=== PATIENT | female | born 1965 | race Caucasian/White ===

== ENCOUNTER 2018-11-26 15:05 | Emergency (ER) | payer MEDICAID, OTHER ==
[2018-11-26] MEDS: KETOROLAC 60 MG INJ IM (21:22)
== END 2018-11-26 23:08 | disposition home or self-care (01) ==
LOC: FTE 15:05
DX: S89.91XA Unspecified injury of right lower leg, initial encounter (principal); W01.0XXA Fall on same level from slipping, tripping and stumbling without subsequent striking against object, initial encounter; Y92.002 Bathroom of unspecified non-institutional (private) residence as the place of occurrence of the external cause
CPT/HCPCS: 73562; 81025; 96372; 99284-25